=== PATIENT | male | born 1960 | race Caucasian/White ===

== ENCOUNTER 2016-09-05 21:41 | Emergency (ER) | payer SELFPAY ==
[~2016-09-05] VITALS: Ht 172.7 cm; Wt 68.9 kg
[~2016-09-05 21:41] MED LIST: FERROUS SULFAT325 MG PO; FOLIC ACID1 MG PO; THERAGRAN1 TABLET PO; THIAMINE HCL100 MG PO
[2016-09-05 21:54] VITALS: BP 142/82
== END 2016-09-05 21:55 ==
LOC: EME 21:41
DX: F10.229 Alcohol dependence with intoxication, unspecified (principal)
CPT/HCPCS: 99281; 99283

== ENCOUNTER 2017-04-26 13:18 | Inpatient (IN) | payer OTHER ==
[~2017-04-26] VITALS: Ht 177.8 cm; Wt 78.2 kg
[2017-04-26 14:42] LABS: HEMATOCRIT 33.8 % (38.0-50.0); MCH 23.4 PG (29.0-34.0); MCHC 30.8 G/DL (30.0-36.0); MCV 76.1 FL (86-99); MEAN PLAT.VOLUME 9.2 uM^3 (9.0-12.4); PLATELET COUNT 383 K/uL (156-360); RBC DIS.WIDTH-CV 17.2 % (11.8-14.6); RBC DIS.WIDTH-SD 47.4 % (39-53); RED BLOOD COUNT 4.44 M/uL (4.00-5.50); WHITE BLOOD COUNT 5.6 K/uL (4.1-10.2)
[2017-04-26 14:55] LABS: CHLORIDE 109 mEq/L (99-109); POTASSIUM 2.9 mEq/L (3.7-5.4); SODIUM 141 mEq/L (136-147)
[2017-04-26 14:57] LABS: GLUCOSE 105 mg/dL (70-99)
[2017-04-26 14:58] LABS: ANION GAP 11 MEQ/L (2-14)
[2017-04-26 15:00] LABS: SERUM ETHYL ALCOHOL 246 mg/dL
[2017-04-26 15:01] LABS: GFR ESTIMATE (CALCULATED) > 59 mL/min/
[2017-04-26 15:02] LABS: UREA NITROGEN (BUN) 12 mg/dL (9-23)
[2017-04-27 00:30] VITALS: BP 117/56
[2017-04-27 07:32] VITALS: BP 126/85
[2017-04-27 08:34] LABS: EOSINOPHIL (%) 3.2 % (0-5); EOSINOPHIL COUNT 0.2 K/uL (0-0.3); HEMATOCRIT 31.5 % (38.0-50.0); IMMATURE GRANULOCYTE (%) 0.4 % (0.0-0.7); INSTRUMENT ABS NEUTROPHIL CT 4.6 K/uL; LYMPHOCYTE COUNT 1.3 K/uL (1.0-2.8); MCH 24.6 PG (29.0-34.0); MCHC 31.7 G/DL (30.0-36.0); MCV 77.4 FL (86-99); MEAN PLAT.VOLUME 8.9 uM^3 (9.0-12.4); MONOCYTE (%) 11.7 % (3-12); MONOCYTE COUNT 0.8 K/uL (0-0.8); NEUTROPHIL COUNT 4.6 K/uL (1.8-6.4); PLATELET COUNT 340 K/uL (156-360); RBC DIS.WIDTH-CV 17.5 % (11.8-14.6); RBC DIS.WIDTH-SD 49.1 % (39-53); RED BLOOD COUNT 4.07 M/uL (4.00-5.50)
[2017-04-27 09:00] LABS: ALKALINE PHOSPHATASE 65 IU/L (3-129); ANION GAP 7 MEQ/L (2-14); CHLORIDE 109 MEQ/L (99-109); GFR ESTIMATE (CALCULATED) > 59 mL/min/; GLUCOSE 84 mg/dL (70-99); SAMPLE HEMOLYSIS CHECK 0; SAMPLE ICTERIC CHECK 0; SAMPLE LIPEMIA CHECK 0; SODIUM 142 MEQ/L (136-147); UREA NITROGEN (BUN) 10 mg/dL (9-23)
[2017-04-27 09:03] LABS: POTASSIUM 4.1 MEQ/L (3.7-5.4)
[2017-04-27 11:52] VITALS: BP 161/99
[2017-04-27 16:00] VITALS: BP 130/66
[2017-04-27 19:13] VITALS: BP 125/70
[2017-04-27 20:35] LABS: ADD MIUA? YES; BILIRUBIN NEGATIVE; BLOOD MODERATE; COLOR YELLOW ((YELLOW)); GLUCOSE (STRIP) NEGATIVE; KETONES 20; LEUKOCYTES NEGATIVE; NITRITE NEGATIVE; PROTEIN (STRIP) NEGATIVE; SPECIFIC GRAVITY 1.014 (1.000-1.030); UROBILINOGEN 0.2 MG/DL (0.2-1.0)
[2017-04-27 21:40] LABS: BACTERIA NONE SEEN /HPF; EPITHELIAL CELLS NONE SEEN /HPF; MUCUS TRACE /LPF; RED BLOOD CELLS 0-5 /HPF (0-5); UCUL ADDED? NO; WHITE BLOOD CELLS 0-5 /HPF (0-5)
== END 2017-04-27 22:57 | disposition left against medical advice (07) | DRG 872 ==
LOC: EME 13:18 → EDOF 17:04 → ENRESERV 17:22 → 5EAST 18:27
PROVIDERS: Emergency Medicine; Student in an Organized Health Care Education/Training Program
DX: A41.9 Sepsis, unspecified organism (principal); F10.221 Alcohol dependence with intoxication delirium; L03.116 Cellulitis of left lower limb; T81.4XXA Infection following a procedure, initial encounter; Y90.8 Blood alcohol level of 240 mg/100 ml or more; E87.6 Hypokalemia; D50.9 Iron deficiency anemia, unspecified; I95.9 Hypotension, unspecified; R09.02 Hypoxemia; Z99.3 Dependence on wheelchair; Z78.1 Physical restraint status; Z91.19 Patient's noncompliance with other medical treatment and regimen
CPT/HCPCS: 71010; 73630; 80048; 80053; 81003; 83605; 83735; 85025; 85027; 87040; 87070; 87075; 87077; 87147; 87186; 87205; 99281; 99285; G0480; J1630; J1650; J2060; J2405; J2543; J3370; J3411; J3475; J3480; J7050

== ENCOUNTER 2017-05-16 20:05 | Inpatient (IN) | payer OTHER ==
[~2017-05-16] VITALS: Ht 177.8 cm; Wt 61.5 kg
[2017-05-16 21:06] LABS: HEMATOCRIT 35.5 % (38.0-50.0); MCH 23.9 PG (29.0-34.0); MCHC 31.3 G/DL (30.0-36.0); MCV 76.3 FL (86-99); MEAN PLAT.VOLUME 8.8 uM^3 (9.0-12.4); RBC DIS.WIDTH-CV 17.1 % (11.8-14.6); RBC DIS.WIDTH-SD 47.2 % (39-53); RED BLOOD COUNT 4.65 M/uL (4.00-5.50); WHITE BLOOD COUNT 6.5 K/uL (4.1-10.2)
[2017-05-16 21:15] LABS: CHLORIDE 108 mEq/L (99-109); POTASSIUM 3.3 mEq/L (3.7-5.4); SODIUM 143 mEq/L (136-147)
[2017-05-16 21:17] LABS: GLUCOSE 103 mg/dL (70-99)
[2017-05-16 21:18] LABS: ANION GAP 17 MEQ/L (2-14)
[2017-05-16 21:20] LABS: SERUM ETHYL ALCOHOL 292 mg/dL
[2017-05-16 21:21] LABS: GFR ESTIMATE (CALCULATED) > 59 mL/min/
[2017-05-16 21:22] LABS: UREA NITROGEN (BUN) 13 mg/dL (9-23)
[2017-05-16 21:28] LABS: PLATELET COUNT 527 K/uL (156-360)
[2017-05-16 21:29] LABS: TROP-I INTERPRETATION NEGATIVE; TROPONIN-I < 0.01 ng/mL (0.0-0.30)
[2017-05-16 22:14] LABS: BASOPHIL COUNT 0.1 K/uL (0-0.1); EOSINOPHIL (%) 4.2 % (0-5); EOSINOPHIL COUNT 0.3 K/uL (0-0.3); IMMATURE GRANULOCYTE (%) 0.5 % (0.0-0.7); INSTRUMENT ABS NEUTROPHIL CT 4.2 K/uL; LYMPHOCYTE COUNT 1.4 K/uL (1.0-2.8); MONOCYTE (%) 7.1 % (3-12); MONOCYTE COUNT 0.5 K/uL (0-0.8); NEUTROPHIL (%) 65.2 % (45-76); NEUTROPHIL COUNT 4.2 K/uL (1.8-6.4)
[2017-05-16 22:49] LABS: ADD MIUA? YES; BILIRUBIN NEGATIVE; BLOOD SMALL; COLOR STRAW ((YELLOW)); GLUCOSE (STRIP) NEGATIVE; KETONES NEGATIVE; LEUKOCYTES NEGATIVE; NITRITE NEGATIVE; PROTEIN (STRIP) NEGATIVE; SPECIFIC GRAVITY 1.005 (1.000-1.030); UROBILINOGEN 0.2 MG/DL (0.2-1.0)
[2017-05-16 22:52] LABS: BACTERIA NONE SEEN /HPF; EPITHELIAL CELLS NONE SEEN /HPF; MUCUS TRACE /LPF; RED BLOOD CELLS NONE SEEN /HPF (0-5); UCUL ADDED? NO; WHITE BLOOD CELLS 0-5 /HPF (0-5)
[2017-05-16 23:03] LABS: AMPHETAMINE NEGATIVE (500 ng/mL); BARBITURATES NEGATIVE (200 ng/mL); BENZODIAZEPINES NEGATIVE (150 ng/mL); COCAINE NEGATIVE (150 ng/mL); INTERNAL CONTROLS VALID? YES; METHADONE NEGATIVE (200 ng/mL); METHAMPHETAMINE NEGATIVE (500 ng/mL); OPIATES (MORPHINE) NEGATIVE (100 ng/mL); OXYCODONE NEGATIVE (100 ng/mL); PHENCYCLIDINE NEGATIVE (25 ng/mL); PROPOXYPHENE NEGATIVE (300 ng/mL); THC CANNABINOIDS NEGATIVE (50 ng/mL); TRICYCLIC ANTIDEPRESSANTS NEGATIVE (300 ng/mL)
[2017-05-17 02:21] VITALS: BP 104/55
[2017-05-17 07:20] LABS: TROP-I INTERPRETATION NEGATIVE; TROPONIN-I < 0.01 ng/mL (0.0-0.30)
[2017-05-17 08:29] LABS: POINT-OF-CARE METER ID UU14188577
[2017-05-17 08:30] VITALS: BP 116/70
== END 2017-05-17 13:09 | disposition left against medical advice (07) | DRG 919 ==
LOC: EME 20:05 → EDOF 05-17 00:31 → 3EAST 05-17 00:31 → ENRESERV 05-17 00:34 → CANRESERV 05-17 00:34 → ENRESERV 05-17 00:55 → 3EAST 05-17 02:07
PROVIDERS: Emergency Medicine; Hospitalist
DX: T86.822 Skin graft (allograft) (autograft) infection (principal); T86.821 Skin graft (allograft) (autograft) failure; Y83.2 Surgical operation with anastomosis, bypass or graft as the cause of abnormal reaction of the patient, or of later complication, without mention of misadventure at the time of the procedure; A41.9 Sepsis, unspecified organism; L03.116 Cellulitis of left lower limb; E87.2 Acidosis; F10.129 Alcohol abuse with intoxication, unspecified; Z91.19 Patient's noncompliance with other medical treatment and regimen; Z59.0 Homelessness
CPT/HCPCS: 71010; 73630; 80048; 81003; 82948; 83605; 84484; 85025; 87040; 93005; 99281; 99285; G0480; J1630; J2060; J2543; J3370; J3411; J3475; J7030; J7042; J7050; S0028